=== PATIENT | female | born 1985 | race Caucasian/White ===

== ENCOUNTER 2022-06-17 21:37 | Inpatient (IN) | payer SELFPAY ==
[2022-06-17] MEDS ORDERED: Morphine 4 MG/ML VIAL ONE (22:58)
[2022-06-17] MEDS ORDERED: Ondansetron PF 4 MG/2 ML Vial ONE (22:58)
[2022-06-18] MEDS ORDERED: Ondansetron PF 4 MG/2 ML Vial IVP PRN (02:24)
[2022-06-18 03:58] VITALS: BMI 34.9
[2022-06-18] MEDS ORDERED: Nicotine 14 MG PATCH TD SCH (04:00)
[2022-06-18] MEDS ORDERED: Lactated Ringer's 1,000 ML IV SCH (04:00)
[2022-06-18] MEDS: Morphine 4 MG/ML VIAL SLOW IVP PRN ×2 (04:32→08:47)
[2022-06-18 06:14] LABS: #Eosinphils 0.1 10x3/uL (0.0-0.5); #Monocytes 0.6 10x3/uL (0.0-1.1); #Neutrophils 6.6 10x3/uL (1.5-8.4); %Basophils 0.3 % (0.0-2.0); %Eosinophils 0.7 % (0.0-6.0); %Lymphocytes 32.4 % (18.0-47.0); %Monocytes 5.2 % (0.0-10.0); %Neutrophils 60.9 % (40.0-75.0); Hemoglobin 12.4 g/dL (12.0-15.5); Mean Corpuscular HGB CONC 33.7 g/dL (32.0-36.0); Mean Corpuscular Hemoglobin 30.8 pg (27.0-33.0); Mean Corpuscular Volume 91.5 fl (81.6-98.3); Mean Platelet Volume 10.6 fl (7.4-10.4); Platelet Count 234 10x3/uL (150-450); Red Blood Cell (RBC) Count 4.02 10x6/uL (3.90-5.03); White Blood Cell (WBC) Count 10.8 10x3/uL (3.5-10.5)
[2022-06-18 06:24] LABS: INR-International Normal Ratio 1.1; Prothrombin Time 11.5 sec (9.5-12.1)
[2022-06-18] MEDS ORDERED: CEFAZOLIN 2 GM in Sodium Chloride 0.9% 100 ML IVPB SCH (09:00)
[2022-06-18] MEDS ORDERED: Bupivacaine HCl 0.5%/Epinephrine 1:200,000/PF 30 ml Vial ONE (11:25)
[2022-06-18] MEDS ORDERED: CEFAZOLIN 2 GM VIAL ONE (11:42)
[2022-06-18] MEDS ORDERED: Fentanyl 100 MCG/2 ML VIAL ONE (11:52)
[2022-06-18] MEDS ORDERED: PROPOFOL 20 ML ONE (11:52)
[2022-06-18 20:52] VITALS: BP 101/59; TEMP 98
== END 2022-06-18 18:38 | disposition home or self-care (01) | DRG 817 ==
LOC: CSHERS 21:37 → CSHPP 06-18 03:44
PROVIDERS: ADMIT Obstetrics & Gynecology; ATTEND Obstetrics & Gynecology
PROC: 10T24ZZ Resection of Products of Conception, Ectopic, Percutaneous Endoscopic Approach (ICD-10-PCS; principal; 2022-06-18)
PROC: 0UB74ZZ Excision of Bilateral Fallopian Tubes, Percutaneous Endoscopic Approach (ICD-10-PCS; 2022-06-18)
PROC: 0D9W4ZZ Drainage of Peritoneum, Percutaneous Endoscopic Approach (ICD-10-PCS; 2022-06-18)
DX: O00.202 Left ovarian pregnancy without intrauterine pregnancy (principal); K66.1 Hemoperitoneum; O08.1 Delayed or excessive hemorrhage following ectopic and molar pregnancy; F17.210 Nicotine dependence, cigarettes, uncomplicated; Z98.51 Tubal ligation status
CPT/HCPCS: 36415; 76856; 85025; 85610; 85730; 86850; 86900; 86901; 88305; 96374; 96375; J2270; J2405; J2704; J3010; J7120

== ENCOUNTER 2022-06-21 00:35 | Emergency (ER) | payer SELFPAY ==
[2022-06-21 01:11] LABS: #Eosinphils 0.1 10x3/uL (0.0-0.5); #Monocytes 0.4 10x3/uL (0.0-1.1); #Neutrophils 6.1 10x3/uL (1.5-8.4); %Basophils 0.2 % (0.0-2.0); %Eosinophils 0.7 % (0.0-6.0); %Lymphocytes 29.9 % (18.0-47.0); %Monocytes 4.4 % (0.0-10.0); %Neutrophils 64.5 % (40.0-75.0); Mean Corpuscular HGB CONC 33.9 g/dL (32.0-36.0); Mean Corpuscular Volume 91.2 fl (81.6-98.3); Mean Platelet Volume 10.4 fl (7.4-10.4); Platelet Count 236 10x3/uL (150-450); White Blood Cell (WBC) Count 9.4 10x3/uL (3.5-10.5)
[2022-06-21 01:18] LABS: ALT (SGPT) 102 U/L (8-55); AST (SGOT) 175 U/L (5-34); Albumin 3.6 g/dL (3.5-5.0); Alkaline Phosphatase 105 U/L (40-110); Anion Gap 13 mmol/L (10-20); BUN (Urea Nitrogen) 12 mg/dL (7.0-18.7); Bilirubin, Total 0.7 mg/dL (0.2-1.2); Calc. Creatinine Clearance 0 mL/min (70-130); Calcium 8.9 mg/dL (7.8-10.44); Carbon Dioxide 24 mmol/L (22-29); Chloride 105 mmol/L (98-107); Estimated GFR 66; Globulin 3.3 g/dL (2.4-3.5); Glucose 105 mg/dL (70-105); Potassium 3.7 mmol/L (3.5-5.1); Protein, Total 6.9 g/dL (6.0-8.3); Sodium 138 mmol/L (136-145)
[2022-06-21] MEDS ORDERED: Ketorolac Tromethamine 30 MG/ML VIAL ONE (02:03)
== END 2022-06-21 02:16 | disposition home or self-care (01) ==
LOC: CSHERS 00:35
DX: K59.00 Constipation, unspecified (principal); F17.210 Nicotine dependence, cigarettes, uncomplicated
CPT/HCPCS: 74177; 80053; 85025; 96374; J1885